=== PATIENT | female | born 1955 | race Hispanic/Latino ===

== ENCOUNTER → 2018-03-30 | Outpatient (CLI) | payer BC | END | disposition home or self-care (01) | LOC: SHCH 11:05 | PROVIDERS: ATTEND Internal Medicine Cardiovascular Disease | DX: I65.23 Occlusion and stenosis of bilateral carotid arteries (principal) | CPT/HCPCS: 93880 ==

== ENCOUNTER 2025-02-20 06:58 | Day surgery (SDC) | payer OTHER ==
[2025-02-20] VITALS (9 sets, daily range): BP systolic 103–141; BP diastolic 46–56; PULSE 60–77; RESP 15–18; TEMP 97.5–97.7
[~2025-02-20] VITALS: Ht 160 cm; Wt 92.1 kg
[~2025-02-20 06:58] MED LIST: CALC625T31 PO; CHOL500051 PO; L.AC1CAP6 PO; MILK150C2 PO; MULT-1247 PO; MULT-1367 PO
[2025-02-20] MEDS: 0.9%NACL 1000ML 1,000 ML IV ONE (08:00)
[2025-02-20] MEDS ORDERED: proPOFol 10 MG/ML 20ML VIAL IV ONE (09:24)
== END 2025-02-20 10:45 | disposition home or self-care (01) ==
LOC: DAH 06:58 → ENDO 06:58
PROVIDERS: ATTEND Internal Medicine Gastroenterology
DX: K92.1 Melena (principal); K51.20 Ulcerative (chronic) proctitis without complications; R93.3 Abnormal findings on diagnostic imaging of other parts of digestive tract; K52.9 Noninfective gastroenteritis and colitis, unspecified; K63.5 Polyp of colon; Z86.0100 Personal history of colon polyps, unspecified; E66.9 Obesity, unspecified; K59.00 Constipation, unspecified; R94.5 Abnormal results of liver function studies; K57.30 Diverticulosis of large intestine without perforation or abscess without bleeding; Z90.710 Acquired absence of both cervix and uterus; Z68.35 Body mass index [BMI] 35.0-35.9, adult; Z79.899 Other long term (current) drug therapy
CPT/HCPCS: 45380; 45385; 00811; J7030; J2704; A4620; A4215 ×2; A4223; A4222; A4221; A4663; A4606; J3490